=== PATIENT | female | born 1985 | race Caucasian/White ===

== ENCOUNTER 2020-06-28 16:02 | Emergency (ER) | payer MEDICAID ==
--- NOTE | 2020-06-28 17:18 | EDM.PDOC ---
ED HPI GENERAL MEDICAL PROBLEM - General Chief Complaint: Abdominal Pain Stated Complaint: ABD PAIN, BACK PAIN Time Seen by Provider: 06/28/20 16:50 Source of Information: Reports: Patient, Family, RN, RN Notes Reviewed History Limitations: Reports: No Limitations - History of Present Illness INITIAL COMMENTS - FREE TEXT/NARRATIVE: It was able to void this morning. However since then she is only been able to dribble. She has not voided any discernible amount since this morning. Patient has pain in the abdomen pelvis area going around to the kidney and the small lower back on the left side. Patient rates the pain at a 8. She has not tried anything for the pain. The pain is becoming less tolerable so she came in to be seen. She denies any infection or any problems yesterday. Patient does work at a [employer] and notes some weight gain otherwise no other complaints. 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: Other (see below) (none) Right Upper Abdomen Pain Score (Numeric/FACES): 8 - Related Data Allergies Allergy/AdvReac Type Severity Reaction Status Date / Time codeine Allergy Hives Verified 06/28/20 16:26 Home Meds: Home Meds Albuterol Sulfate [Albuterol Sulfate Hfa] 8.5 gm IH ASDIRECTED PRN 06/28/20 [History] Past Medical History 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 Denies: Fever, Chills, Diaphoresis HEENT: Reports: No Symptoms Respiratory: Reports: No Symptoms Cardiovascular: Reports: No Symptoms Endocrine: Reports: No Symptoms GI/Abdominal: Reports: Abdominal Pain, Distension. Denies: Anorexia, Black Stool, Bloody Stool, Constipation, Diarrhea, Decreased Appetite, Difficulty Swallowing, Flatus, Hematemesis, Hematochezia, Melena, Mucous in Stool, Nausea, Stool Incontinence, Vomiting : Reports: Dysuria, Flank Pain, Pain, Urinary Retention. Denies: Discharge, Frequency, Hematuria, Incontinence, Urgency Musculoskeletal: Reports: No Symptoms Skin: Reports: No Symptoms Neurological: Reports: No Symptoms Psychiatric: Reports: No Symptoms Hematologic/Lymphatic: Reports: No Symptoms Immunologic: Reports: No Symptoms ED EXAM, RENAL/ - Physical Exam Exam: See Below Exam Limited By: No Limitations General Appearance: Alert, WD/WN, Moderate Distress Neck: Normal Inspection, Supple, Non-Tender, Full Range of Motion Respiratory/Chest: No Respiratory Distress, Lungs Clear, Normal Breath Sounds, No Accessory Muscle Use, Chest Non-Tender Cardiovascular: Normal Peripheral Pulses, Regular Rate, Rhythm, No Edema GI/Abdominal: Normal Bowel Sounds, Soft, No Organomegaly, No Abnormal Bruit, No Mass, Pelvis Stable, Guarding (left abd), Tender. No: Rigid, Rebound, Mass, Hepatomegaly, Splenomegaly Back Exam: Normal Inspection, CVA Tenderness (L) Extremities: Normal Inspection, Normal Range of Motion, Non-Tender, Normal Capillary Refill Neurological: Alert, Oriented, CN II-XII Intact, Normal Cognition Psychiatric: Normal Affect, Normal Mood Skin Exam: Warm, Dry, Intact, Normal Color, No Rash Lymphatic: No Adenopathy Course - Vital Signs Last Recorded V/S: Last Vital Signs Temp 37.7 C 06/28/20 20:10 Pulse 100 06/28/20 20:10 Resp 15 06/28/20 20:10 BP 114/75 06/28/20 20:10 Pulse Ox 95 06/28/20 20:10 - Orders/Labs/Meds Orders: Active Orders 24 hr Category Date Time Status Insert Alva Catheter [Insert Urinary Catheter] [OM.PC] Care 06/28/20 19:00 Ordered Q24H Pt has been her an hour and unable to provide a urine specimen. IV fluids and pain meds added. Labs: Laboratory Tests 0906/28/20 06/28/20 Range/Units 17:12 17:43 17:43 WBC 17.8 H (4.5-11.0) K/uL RBC 4.76 (3.30-5.50) M/uL Hgb 14.5 (12.0-15.0) g/dL Hct 44.7 (36.0-48.0) % MCV 94 (80-98) fL MCH 31 (27-31) pg MCHC 32 (32-36) % Plt Count 356 (150-400) K/uL Neut % (Auto) 81 H (36-66) % Lymph % (Auto) 12 L (24-44) % [place] % (Auto) 7 H (2-6) % Eos % (Auto) 0 L (2-4) % Baso % (Auto) 0 (0-1) % Sodium 143 (140-148) mmol/L Potassium 4.3 (3.6-5.2) mmol/L Chloride 108 (100-108) mmol/L Carbon Dioxide 26 (21-32) mmol/L Anion Gap 9.0 (5.0-14.0) mmol/L BUN 17 (7-18) mg/dL Creatinine 1.0 (0.6-1.0) mg/dL Est Cr Clr Drug Dosing 58.12 mL/min Estimated GFR (MDRD) > 60 (>60) Glucose 108 H (74-106) mg/dL Calcium 9.4 (8.5-10.1) mg/dL Urine Color (YELLOW) Urine Appearance (CLEAR) Urine pH (5.0-8.0) Ur Specific [place] (1.008-1.030) Urine Protein (NEGATIVE) mg/dL Urine Glucose (UA) (NEGATIVE) mg/dL Urine Ketones (NEGATIVE) mg/dL Urine Occult Blood (NEGATIVE) Urine Nitrite (NEGATIVE) Urine Bilirubin (NEGATIVE) Urine Urobilinogen (0.2-1.0) EU/dL Ur Leukocyte Esterase (NEGATIVE) Urine RBC (0-5) Urine WBC (0-5) Ur Epithelial Cells Urine Bacteria Urine HCG, Qual Negative 06/28/20 Range/Units 19:25 WBC (4.5-11.0) K/uL RBC (3.30-5.50) M/uL Hgb (12.0-15.0) g/dL Hct (36.0-48.0) % MCV (80-98) fL MCH (27-31) pg MCHC (32-36) % Plt Count (150-400) K/uL Neut % (Auto) (36-66) % Lymph % (Auto) (24-44) % [place] % (Auto) (2-6) % Eos % (Auto) (2-4) % Baso % (Auto) (0-1) % Sodium (140-148) mmol/L Potassium (3.6-5.2) mmol/L Chloride (100-108) mmol/L Carbon Dioxide (21-32) mmol/L Anion Gap (5.0-14.0) mmol/L BUN (7-18) mg/dL Creatinine (0.6-1.0) mg/dL Est Cr Clr Drug Dosing mL/min Estimated GFR (MDRD) (>60) Glucose (74-106) mg/dL Calcium (8.5-10.1) mg/dL Urine Color Yellow (YELLOW) Urine Appearance Slightly cloudy A (CLEAR) Urine pH 5.5 (5.0-8.0) Ur Specific [place] >= 1.030 (1.008-1.030) Urine Protein 30 H (NEGATIVE) mg/dL Urine Glucose (UA) Negative (NEGATIVE) mg/dL Urine Ketones 15 H (NEGATIVE) mg/dL Urine Occult Blood Moderate H (NEGATIVE) Urine Nitrite Negative (NEGATIVE) Urine Bilirubin Small H (NEGATIVE) Urine Urobilinogen 0.2 (0.2-1.0) EU/dL Ur Leukocyte Esterase Negative (NEGATIVE) Urine RBC Not seen (0-5) Urine WBC Not seen (0-5) Ur Epithelial Cells Rare Urine Bacteria Not seen Urine HCG, Qual Elevated WBC and Neutrophil count. Likely infection, unknown source. Kidney function preserved with no urine output. IVs started in an attempt to collect urine sample. UA does not show infection. Will complete CT abd/pelvis without contrast after negative test. Meds: Medications Discontinued Medications Generic Name Dose Route Start Last Admin Trade Name Freq PRN Reason Stop Dose Admin Hydromorphone HCl 0.5 mg 06/28/20 19:41 06/28/20 19:59 Dilaudid IVPUSH 06/28/20 19:42 0.5 mg ONETIME ONE Administration Sodium Chloride 1,000 mls @ 999 mls/hr 06/28/20 19:00 06/28/20 19:06 Normal Saline IV 999 mls/hr ASDIRECTED NORIS Administration Sodium Chloride 1,000 mls @ 500 mls/hr 06/28/20 20:15 06/28/20 20:28 Normal Saline IV 500 mls/hr ASDIRECTED NORIS Administration Ketorolac Tromethamine 30 mg 06/28/20 19:08 06/28/20 19:19 Toradol IVPUSH 06/28/20 19:09 30 mg ONETIME ONE Administration Ondansetron HCl 4 mg 06/28/20 19:50 06/28/20 19:57 Zofran IVPUSH 06/28/20 19:51 4 mg ONETIME ONE Administration Pain improved after toradol/dilaudid. now rates pain a 4. - Radiology Interpretation Free Text/Narrative:: CT scan reveals 2mm stone ureteropelvic junction - Re-Assessments/Exams Free Text/Narrative Re-Assessment/Exam: 06/28/20 21:[address] Provided pt with the CT results. Plan made to d/c the patient with pain meds. Instructed patient to increased fluids. Pt is acceptable to this plan 06/28/20 21:33 Departure - Departure Time of Disposition: 22:10 Disposition: Home, Self-Care 01 Condition: Fair Clinical Impression: Kidney stone - Discharge Information *PRESCRIPTION DRUG MONITORING PROGRAM REVIEWED*: Yes *COPY OF PRESCRIPTION DRUG MONITORING REPORT IN PATIENT JESSICA: No Instructions: Kidney Stones, [id number] Referrals: PCP,None [Primary Care Provider] - Forms: ED Department Discharge Additional Instructions: Increase fluids. May use pain medications for increased pain. Return to ER if continues unable to pass urine. Per radiologist read location of stone is in region likely to pass without difficulty. Sepsis Event Note (ED) - Evaluation Sepsis Screening Result: No Definite Risk - Focused Exam Vital Signs: Vital Signs Temp Pulse Resp BP Pulse Ox 06/28/20 20:10 37.7 C 100 15 114/75 95 06/28/20 16:25 36.6 C 82 16 119/82 100 06/28/20 16:21 36.6 C 82 16 119/82 100 - My Orders Last 24 Hours: My Active Orders 06/28/20 19:00 Insert Alva Catheter [Insert Urinary Catheter] [OM.PC] Q24H - Assessment/Plan Last 24 Hours: My Active Orders 06/28/20 19:00 Insert Alva Catheter [Insert Urinary Catheter] [OM.PC] Q24H Assessment:: Kidney Stone Plan: Home with pain meds and instruction to strain urine and increase fluid intake.
[2020-06-28] MEDS ORDERED: Sodium Chloride 0.9% 1,000 ML IV SCH ×2 (19:00→20:15)
[2020-06-28] MEDS ORDERED: Ketorolac 30 MG/ML SDV IVPUSH ONE (19:08)
[2020-06-28] MEDS ORDERED: HYDROmorphone 0.5 MG/0.5 ML Syringe IVPUSH ONE (19:41)
[2020-06-28] MEDS ORDERED: Ondansetron 4 MG/2 ML SDV IVPUSH ONE ×2 (19:46→19:50)
[2020-06-28 20:11] VITALS: BP 114/75; PULSE 100
--- NOTE | 2020-06-28 20:54 | CRLCT ---
Indication: Kidney stone Technique: Nonenhanced axial CT imaging through the abdomen and pelvis. Sagittal and coronal reconstructions are provided. Comparison: None Findings: There is a 2 mm stone at the left ureteropelvic junction. Mild left hydroureteronephrosis and perinephric edema are consistent with urinary obstruction. No additional stones are seen in the left renal collecting system and ureter. There are no right renal stones. There is unremarkable noncontrast appearance of the liver, gallbladder, spleen, pancreas, and adrenal glands. There is no abdominal lymphadenopathy. There is normal caliber of the abdominal aorta. The stomach and duodenum are unremarkable. There are no abnormally dilated small bowel loops. The appendix is noninflamed. There is no colonic wall thickening. No inflammatory changes are demonstrated in the mesentery. The osseous structures are unremarkable. The included lung bases are clear. Impression: 1. A 2 mm stone at the left ureteropelvic junction causing mild left hydronephrosis and renal edema. 2. No additional renal or ureteral stones Please note that all CT scans at this facility use dose modulation, iterative reconstruction, and/or weight-based dosing when appropriate to reduce radiation dose to as low as reasonably achievable. Dictated by Karla Almanza MD @ Jun 28 2020 8:44PM Signed by Dr. Karla Almanza @ Jun 28 2020 8:52PM
== END 2020-06-28 22:10 | disposition home or self-care (01) ==
LOC: JP.ED 16:02
DX: N13.2 Hydronephrosis with renal and ureteral calculous obstruction (principal); F17.210 Nicotine dependence, cigarettes, uncomplicated; Z88.5 Allergy status to narcotic agent
CPT/HCPCS: 36415; 51702; 74176; 80048; 81001; 81025; 85025; 96361; 96374; 96375; 99284; J1170; J1885; J2405; J7030